=== PATIENT | male | born 1995 | race Two or more races ===

== ENCOUNTER 2025-03-08 12:06 | Emergency (ER) | payer MEDICAID, SELFPAY ==
[2025-03-08 12:07] VITALS: BMI 39.5
[2025-03-08 12:42] VITALS: BP 100/71; PULSE 91; RESP 20; TEMP 36.9; O2SAT 96
--- NOTE | 2025-03-08 12:48 | XR_ITS ---
Examination: PA lateral chest 2 views Technique: Upright PA lateral chest 2 views Exam date and time: March 08, 2025 1352 hrs. Indications: Coughing shortness of breath 6 months Findings: Normal heart size. Lungs are clear. The osseous structures are intact Impression: No active disease
[2025-03-08 13:14] LABS: Basophils % (Auto) 0 % (0-2.5); Eosinophils # (Auto) 0.1 Thou/mm3 (0.0-0.5); Eosinophils % (Auto) 2 % (0-10); Hematocrit 44.2 % (41.0-53.0); Hemoglobin 16.2 g/dL (13.5-16.0); Immature Granulocytes % (Auto) 0 % (0-0); Immature Granulocytes Auto 0.01 Thou/mm3 (0.00-0.00); Lymphocytes # (Auto) 1.4 Thou/mm3 (1.0-4.8); Lymphocytes % (Auto) 21 % (10-50); Mean Corpuscular HGB Conc 36.7 g/dl (31.0-37.0); Mean Corpuscular Hemoglobin 36.4 pg (25.0-35.0); Mean Corpuscular Volume 99 fL (80-100); Monocytes # (Auto) 0.6 Thou/mm3 (0.0-0.8); Monocytes % (Auto) 9 % (0-12); Neutrophils # (Auto) 4.4 Thou/mm3 (1.8-7.7); Neutrophils % (Auto) 68 % (37-80); Nucleated Red Blood Cell % 0 /100 WBC (0); Platelet Count 216 Thou/mm3 (140-440); Red Blood Count 4.45 Miln/mm3 (4.50-5.90); White Blood Count 6.5 Thou/mm3 (3.8-10.6)
[2025-03-08 13:34] LABS: Alanine Aminotransferase 392 U/L (10-49); Albumin, Serum 4.6 gm/dL (3.5-5.0); Albumin/Globulin Ratio 1.4 (1.2-2.2); Alkaline Phosphatase 143 U/L (46-116); Anion Gap 10 (7-16); Aspartate Amino Transferase 391 U/L (0-34); BUN/Creatinine Ratio 14 Ratio (12-20); Bilirubin,Total 1.3 mg/dL (0.3-1.2); Blood Urea Nitrogen 13 mg/dL (9-23); Carbon Dioxide 25.2 mMol/L (20.0-31.0); Chloride 102 mMol/L (98-107); Creatinine (Component) 0.9 mg/dL (0.6-1.3); Estimated Creatinine Clearance 149.7 mL/min (>60); Globulin 3.4 gm/dL (2.3-3.5); Glucose 120 mg/dL (74-106); Osmolality,Calculated 274 (275-295); Sodium 137 mMol/L (136-145); eGFR > 60 See Note
--- NOTE | 2025-03-08 14:25 | XR_ITS ---
Examination: Abdomen sonogram, Limited Date and time of exam: March 08, 2025 1439 hrs. Indications: Abdominal pain and elevated liver function tests on laboratory examination today Technique: Real-time lucas scale transabdominal sonographic images of the upper abdomen obtained. Findings: Normal gallbladder Normal common bile duct 0.3 cm Pancreatic head 2.9 cm Liver 21.5 cm fatty infiltration Normal hepatopedal portal venous flow Patent IVC Impression: Moderate hepatomegaly, fatty liver
--- NOTE | 2025-03-08 14:26 | PD.EDRME ---
Rapid Medical Screening Exam RME Arrival date/time: 03/08/25 12:06 30-year-old male presents to the Emergency Department today for complaints of cough ongoing for months as well as generalized bodyaches and fatigue Chief Complaint: General Adult/Misc Complain Time Seen by Provider: 03/08/25 12:47 Vital signs: Vital Signs Temperature 98.5 F 03/08/25 12:42 Pulse Rate 91 03/08/25 12:42 Respiratory Rate 20 03/08/25 12:42 Blood Pressure 100/71 03/08/25 12:42 Pulse Oximetry (%) 96 03/08/25 12:42 Oxygen Delivery Method Room Air 03/08/25 12:42
--- NOTE | 2025-03-08 18:11 | PD.EDADULT ---
ED General RME/HPI General Chief complaint: General Adult/Misc Complain Stated complaint: MUSCLE ACHE, SOB, COUGH X4WKS Time Seen by Provider: 03/08/25 12:47 Arrival date/time: 03/08/25 12:06 CC dry annoying cough HPI ongoing for the past 8 months, patient states it is not gotten worse or gotten any better it has been persistent no specific pattern nighttime daytime before or after a meal. Patient denies any respiratory symptoms including shortness of breath or difficulty breathing no chest pain. Patient has not seen PCP regarding this issue. RME / HPI RME / HPI narrative: 03/08/25 12:06 30-year-old male presents to the Emergency Department today for complaints of cough ongoing for months as well as generalized bodyaches and fatigue Related Data Previous Rx's ?Medication ?Instructions ?Recorded ibuprofen 600 mg tablet 600 mg PO Q8H PRN fever or pain 08/28/23 #30 tabs famotidine 20 mg tablet 20 mg PO QDAY #30 tabs 03/08/25 Allergies Allergy/AdvReac Type Severity Reaction Status Date / Time NKA* Allergy Uncoded 03/08/25 12:08 Review of Systems Review of Systems Narrative Review of Systems: GEN: No fever, no chills, no weight loss EYES: No discharge, no visual changes, no pain HEENT: No ear pain, no congestion, no sore throat PULM: No shortness of breath, + cough, no congestion CV: No chest pain, no dyspnea on exertion, no palpitations GI: No nausea, no vomiting, no diarrhea, no pain, no constipation : No frequency, no urgency, no dysuria MUSC/SKEL: No joint pain, no back pain SKIN: No rash PSYCH: No hallucinations, no depression HEME/LYMPH: No easy bleeding or bruising tendencies NEURO: No weakness, no headache Past Medical History Past Medical History CARDIAC: Negative Cardiac Disorders RESPIRATORY: Negative Asthma GENITOURINARY: Negative Renal Disease ENDOCRINE: Negative Diabetes Mellitus Type 2 HEMATOLOGIC: Negative Sickle Cell Disease Social History SMOKING STATUS: Never smoker ED Exam Narrative Physical exam: [General: Obese not in any acute distress Head normocephalic HEENT: Within acceptable limits Neck is supple nontender Chest equal chest rise nontender to palpation Respiratory: Clear to auscultation no wheezes crackles or rubs CV: Rate rhythm is regular no murmurs rubs or clicks Abdomen is distended secondary to body habitus soft nontender no masses positive bowel sounds all 4 quadrants Back: No CVA tenderness no spinous process tenderness from cervical spine thoracic and lumbar spine Skin: Intact no petechiae rash induration ulceration or crepitus Extremities: Moving all extremity against resistance cap refill less than 2 seconds neurosensory intact Neuro: Awake alert oriented x3 Glascow coma 15 no focal deficits] Course Quality Measures none Orders Category Date Time Status Bedside Influenza A&B Antigen Test NOW Care 03/08/25 12:48 Completed US gall bladder Stat Exams 03/08/25 14:25 Completed XR chest 2V Stat Exams 03/08/25 12:48 Completed CBC Stat Lab 03/08/25 13:07 Completed CMP [Comprehensive Metabolic Panel] Stat Lab 03/08/25 13:07 Completed Cocci Serology IgM with reflex to IgG [Cocci Serology, Lab 03/08/25 13:07 Received Unk History] Stat Vital Signs Vital signs: Vital Signs Temperature 98.5 F 03/08/25 12:42 Pulse Rate 91 03/08/25 12:42 Respiratory Rate 20 03/08/25 12:42 Blood Pressure 100/71 03/08/25 12:42 Pulse Oximetry (%) 96 03/08/25 12:42 Oxygen Delivery Method Room Air 03/08/25 12:42 [facility] Patient data External records reviewed:: [facility] previous records Clinical information provided by:: patient Social determinants that could affect healthcare access:: none Patient has the following chronic illnesses:: Obesity How is presenting disease/condition affected by chronic disease/condition?: uneffected by Evaluation data The following diagnostics were reviewed and interpreted by me:: lab results and radiology exam(s) Lab and/or radiology exams considered but not ordered:: Chest x-ray as interpreted by me read by radiology as negative for any acute finding read emergent intervention CBC shows no leukocytosis hemoconcentrated with hemoglobin of 16.2 a crit of 44.2 platelets are normal. CMP shows no acute electrolyte imbalances other than a glucose of 120. T. bili 1.3 AST ALT and alk phos are mildly elevated. At the time of this dictation coccidial is pending. Gallbladder shows a fatty liver no other acute finding. Interpretation Summary: I suspect this patient has GI related cough triggered from acid reflux, will start the patient on famotidine on a daily basis and ask him to cut back on greasy spicy fatty foods and no food for 2 hours prior to going to sleep. See if this works patient is to follow-up with the [facility] which she states is his primary care provider Medications Medications considered but not ordered:: None Medication administrations:: None Consultations Consultation(s) initiated? (list below): No Diagnosis Differential Diagnosis ED Complaint MDM: Acid reflux pneumonia Most likely diagnosis given after review of the tests above:: Acid reflux pneumonia Admission Indicated Admission indicated?: not indicated Explain why admission is indicated or not indicated:: Stable for discharge Admission Request Was there a request for admission?: No Disposition Plan Disposition Plan: Discharge Discharge Attestation Discharge Attestation: The patient and all family members were given an opportunity to ask questions and understood the discharge instructions. Discharge instructions specifically effects, indications for sooner follow up or return to the emergency department, and the expected course of current diagnosis. Patient condition: Stable Medical Decision Making Differential Diagnosis Differential Diagnosis: Acid reflux pneumonia Lab Data 03/08/25 13:07 03/08/25 13:07 Labs: Lab Results 03/08/25 Range/Units 13:07 WBC 6.5 (3.8-10.6) Thou/mm3 RBC 4.45 L (4.50-5.90) Miln/mm3 Hgb 16.2 H (13.5-16.0) g/dL Hct 44.2 (41.0-53.0) % MCV 99 (80-100) fL MCH 36.4 H (25.0-35.0) pg MCHC 36.7 (31.0-37.0) g/dl RDW Std Deviation 45.0 H (35.1-43.9) fL Plt Count 216 (140-440) Thou/mm3 Neut % (Auto) 68 (37-80) % Lymph % (Auto) 21 (10-50) % [place] % (Auto) 9 (0-12) % Eos % (Auto) 2 (0-10) % Baso % (Auto) 0 (0-2.5) % Neut # (Auto) 4.4 (1.8-7.7) Thou/mm3 Lymph # (Auto) 1.4 (1.0-4.8) Thou/mm3 [place] # (Auto) 0.6 (0.0-0.8) Thou/mm3 Eos # (Auto) 0.1 (0.0-0.5) Thou/mm3 Baso # (Auto) 0.0 (0.0-0.2) Thou/mm3 Immature Gran # (Auto) 0.01 H (0.00-0.00) Thou/mm3 Absolute Nucleated RBC 0.00 (0.00-0.00) Thou/mm3 Immature Gran % 0 (0-0) % Nucleated RBC % 0 (0) /100 WBC Sodium 137 (136-145) mMol/L Potassium 4.0 (3.4-5.1) mMol/L Chloride 102 (98-107) mMol/L Carbon Dioxide 25.2 (20.0-31.0) mMol/L Anion Gap 10 (7-16) BUN 13 (9-23) mg/dL Creatinine 0.9 (0.6-1.3) mg/dL Estim Creat Clear Calc 149.7 (>60) mL/min eGFR > 60 (60 - ) See Note BUN/Creatinine Ratio 14 (12-20) Ratio Glucose 120 H (74-106) mg/dL Calculated Osmolality 274 L (275-295) Calcium 9.0 (8.3-10.6) mg/dL Corrected Calcium 9.0 (8.5-10.1) mg/dL Total Bilirubin 1.3 H (0.3-1.2) mg/dL AST 391 H (0-34) U/L ALT 392 H (10-49) U/L Alkaline Phosphatase 143 H (46-116) U/L Total Protein 8.0 (5.7-8.2) gm/dL Albumin 4.6 (3.5-5.0) gm/dL Globulin 3.4 (2.3-3.5) gm/dL Albumin/Globulin Ratio 1.4 (1.2-2.2) Discharge Plan Plan Patient Disposition: HOME (Self Care) Patient condition on transfer: Stable Prescriptions/Referrals Prescriptions/Med Rec: New famotidine 20 mg tablet 20 mg PO QDAY Qty: 30 1RF No Action ibuprofen 600 mg tablet 600 mg PO Q8H PRN (Reason: fever or pain) Qty: 30 0RF Referrals: Jonas Pace MD [Primary Care Provider] - In 1 week Problem List Clinical Impression: Cough Patient/Caregiver Discharge Instructions Education Materials: ED Cough Chronic Uncertain Cause Adult Print Language: Guatemalan Stand Alone Forms: Elena Award Info., Patient Portal Info Letter, Work/School Release 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
[2025-03-09 13:09] LABS: Cocci Serology, IgM Negative (Negative)
[2025-03-10 13:56] LABS: Cocci Serology, IgG Negative (Negative)
== END 2025-03-08 18:26 | disposition home or self-care (01) ==
PROVIDERS: Nurse Practitioner Primary Care; Emergency Provider Emergency Medicine; PCP Family Medicine
DX: R05.9 Cough, unspecified (principal); K76.0 Fatty (change of) liver, not elsewhere classified; E66.9 Obesity, unspecified; Z68.39 Body mass index [BMI] 39.0-39.9, adult
CPT/HCPCS: 36415; 71046; 76705; 80053; 85025; 86331; 86635; 87400; 99284